=== PATIENT | female | born 1995 | race Caucasian/White ===

== ENCOUNTER → 2017-05-06 | Emergency (ER) | payer OTHER ==
[~2017-05-06] VITALS: Ht 170.2 cm; Wt 63.5 kg
[~2017-05-06] MED LIST: KETO10TA2 PO
== END | disposition home or self-care (01) ==
LOC: ER 15:33
DX: J11.1 Influenza due to unidentified influenza virus with other respiratory manifestations (principal); K29.70 Gastritis, unspecified, without bleeding; B34.9 Viral infection, unspecified

== ENCOUNTER 2017-09-19 01:02 | Emergency (ER) | payer OTHER ==
[~2017-09-19] VITALS: Ht 172.7 cm; Wt 58.5 kg
[2017-09-19] MEDS ORDERED: LEVSIN/SL0.125 MG SL (06:27)
[2017-09-19] MEDS ORDERED: PEPCID40 MG PO (06:27)
[2017-09-19] MEDS ORDERED: ZOFRAN ODT4 MG PO (06:27)
== END 2017-09-19 06:43 | disposition home or self-care (01) ==
LOC: ER 01:02
DX: R10.84 Generalized abdominal pain (principal)